=== PATIENT | female | born 1990 | race Two or more races ===

== ENCOUNTER 2024-11-16 04:48 | Emergency (ER) | payer OTHER ==
[~2024-11-16] VITALS: Ht 157.5 cm; Wt 115.7 kg
[2024-11-16] MEDS ORDERED: ACET500T58 PO (05:04)
[2024-11-16] MEDS ORDERED: AMOX875T4 PO (05:04)
--- NOTE | 2024-11-16 05:04 | ED.PDOC ---
Eye-HPI HPI Comments 34-YEAR-OLD FEMALE PRESENTS TO ER WITH COMPLAINTS OF SORE THROAT X1 DAY. PATIENT REPORTS THAT SHE HAS BEEN EXPERIENCING SORE THROAT AND RIGHT-SIDED EARACHE PAIN X1 DAY. PATIENT ALSO ENDORSES A MILD LINGERING COUGH X2 WEEKS. SHE RATES HER CURRENT PAIN AN 8/10. REPORTS THAT SHE DID TAKE TYLENOL FOR HER PAIN WITH SLIGHT RELIEF. PATIENT PRESENTS TO ER AMBULATORY ON ARRIVAL, IN NO DISTRESS WITH VITALS STABLE. DENIES FEVER, SHORTNESS OF BREATH, CHEST PAIN, BODY ACHES, NIGHT SWEATS OR ANY FURTHER SYMPTOMS/COMPLAINTS Chief Complaint: Sore Throat Time Seen by MD: 05:02 Primary Care Provider: UNKNOWN Reviewed Notes: Nurses Notes, Medications, Allergies Allergies: Coded Allergies: NO KNOWN ALLERGIES (Unverified , 11/16/24) Home Meds Active Scripts Acetaminophen (Acetaminophen) 500 Mg Tab, 500 MG PO Q4HPRN, #30 TAB 0 Refills Prov:THERESA SELF 11/16/24 Amoxicillin & Pot Clavulanate (Amoxicillin/Potassium Cla) 875 Mg Tab, 1 TAB PO BID for 10 Days, #20 TAB 0 Refills Prov:THERESA SELF 11/16/24 Information Source: Patient Mode of Arrival: Ambulatory Past Medical History PAST MEDICAL HISTORY: Denies Surgical History: Denies all surgeries MONOTYPE CASTER History: No Pertinent MONOTYPE CASTER History Family History Family History: Unknown Social History Smoker: Non-Smoker Alcohol: Denies ETOH Use Drugs: Denies Drug Use Lives In: Home Constitutional: denies: chills, diaphoresis, fatigue, fever, malaise, sweats, weakness, others EENTM: reports: others (As stated in HPI) Respiratory: reports: others (As stated in HPI) Cardiovascular: denies: chest pain, dizzy spells, diaphoresis, Dyspnea on exertion, edema, irregular heart beat, left arm pain, lightheadedness, palpitations, PND, syncope, others Gastrointestinal: denies: abdomen distended, abdominal pain, blood streaked bowels, constipated, diarrhea, dysphagia, difficulty swallowing, hematemesis, melena, nausea, poor appetite, poor fluid intake, rectal bleeding, rectal pain, vomiting, others Genitourinary: denies: abnormal vagina bleeding, burning, dyspareunia, dysuria, flank pain, frequency, hematuria, incontinence, pain, , vagina discharge, urgency, others Neurological: denies: dizziness, fainting, headache, left sided numbness, left sided weakness, numbness, paresthesia, pre-existing deficit, right sided numbn ess, right sided weakness, seizure, speech problems, tingling, tremors, weakness, others Musculoskeletal: denies: back pain, gout, joint pain, joint swelling, muscle pain, muscle stiffness, neck pain, others Integumetry: denies: bruises, change in color, change in hair/nails, dryness, laceration, lesions, lumps, rash, wounds, others Allergic/Immunocompromised: denies: Difficulty Healing, Frequent Infections, Hives, Itching, others Hematologic/Lymphatic: denies: anemia, blood clots, easy bleeding, easy bruising, swollen glands, others Endocrine: denies: excessive hunger, excessive sweating, excessive thirst, excessive urination, flushing, intolerance to cold, intolerance to heat, unexplained weight gain, unexplained weight loss, others Psychiatric: denies: anxiety, bipolar disorder, depression, hopeless, panic disorder, schizophrenia, sleepless, suicidal, others Physical Exam General Appearance: No Apparent Distress, Obese HEENT: PERRL/EOMI, Pharyngeal Erythema (Mild tonsillar swelling/erythema noted bilaterally without exudates. Uvula-normal), Other (Mild erythema noted to r ight middle ear canal. Remainder bilateral ear exam-unremarkable) Neck: Full Range of Motion, Non-Tender, Normal Respiratory: Chest Non-Tender, Lungs Clear, No Accessory Muscle Use, No Respiratory Distress, Normal Breath Sounds Cardiovascular: No Murmur, No Gallop, Regular Rate/Rhythm Breast Exam: Deferred Gastrointestinal: NOT DONE Genitalia: Deferred Pelvic: Deferred Rectal: Deferred Extremities: Normal capillary refill, Normal range of motion Neurologic: Alert, No Motor Deficits, Normal Affect, Normal Mood, No Sensory Deficits Cerebellar Function: Normal Reflexes: Normal Skin: Dry, Normal Color, Warm Lymphatic: No Adenopathy Was a procedure done? Was a procedure done?: No Sedation Sedation?: No EENT DIFF Eye: N/A Ear: Cerumen Impaction, Otitis Externa, Perforation Sore Throat: Mononeucleosis, Streptococcal, URI X-Ray, Labs, Meds, VS Vital Signs Date Time Temp Pulse Resp B/P (MAP) Pulse Ox O2 Delivery O2 Flow Rate FiO2 11/16/24 04:48 99.0 97 16 128/83 99 99.0 Rocephin 1 g IM ordered Advised to drink plenty of fluids Advised to follow up with PCP in 1-2 days Patient verbalized understanding and agreeable with current plan of care Advised to return to ER immediately if symptoms worsen Time of 1ST Reevaluation: 04:40 Reevaluation 1ST: N/A Patient Education/Counseling: Diagnosis, Treatment, Prognosis, Need For Follow Up Family Education/Counseling: No Family Present SEPSIS Sepsis Screen Date sepsis recognized/suspect: Nov 16, 2024 Time Sepsis recognized/suspect: 044 Recent Procedure: No On Antibiotic Therapy: No Respiratory Rate >20: No Heart Rate >90: Yes Temp<36 C (96.8 F) or >38.3 C: No SBP <90 or MAP <65 mmHG: No New Acute Mental Status Change: No Is the patient on CPAP, BIPAP,: No Physician Orders Ceftriaxone Sodium (Rocephin) (11/16/24 05:15) Acetaminophen Tablet (Tylenol Tablet) (11/16/24 05:15) Vital Signs Date Time Temp Pulse Resp B/P (MAP) Pulse Ox O2 Delivery O2 Flow Rate FiO2 11/16/24 04:48 99.0 97 16 128/83 99 99.0 Departure 1 Departure Time of Disposition: 05:02 Impression: Primary Impression: Otitis media of right ear Qualified Codes: H66.91 - Otitis media, unspecified, right ear Additional Impression: Acute bronchitis Qualified Codes: J20.9 - Acute bronchitis, unspecified Disposition: 01 HOME / SELF CARE / HOMELESS Condition: Stable e-Prescriptions Acetaminophen (Acetaminophen) 500 Mg Tab 500 MG PO Q4HPRN, #30 TAB 0 Refills Prov: THERESA SELF 11/16/24 Amoxicillin & Pot Clavulanate (Amoxicillin/Potassium Cla) 875 Mg Tab 1 TAB PO BID for 10 Days, #20 TAB 0 Refills Prov: THERESA SELF 11/16/24 Discharged With: Self Critical Care Note Critical Care Time?: No Stability Stability form required: No Heart Score Heart Score: Heart Score Response (Comments) Value History N/A 0 EKG N/A 0 Age N/A 0 Risk Factors N/A 0 Troponin N/A 0 Total 0 THERESA SELF Nov 16, 2024 05:04
[2024-11-16] MEDS ORDERED: cefTRIAXone SOD 1,000 MG VL IM ONE (05:15)
[2024-11-16] MEDS ORDERED: ACETAMINOPHEN 325 MG TAB PO ONE (05:15)
[2024-11-16] MEDS ORDERED: LIDOCAINE 1% HCL (LOCAL ANESTH.) INJ 20ML MDV ID ONE (06:45)
[2024-11-16 06:50] VITALS: BP 125/80; PULSE 90; RESP 18; TEMP 99; O2SAT 99
== END 2024-11-16 06:55 | disposition home or self-care (01) ==
LOC: ER 04:48
DX: J20.9 Acute bronchitis, unspecified (principal); H66.91 Otitis media, unspecified, right ear
CPT/HCPCS: J0696; J2003